=== PATIENT | male | born 1995 | race Caucasian/White ===

== ENCOUNTER 2022-03-07 21:13 | Observation (INO) | payer OTHER ==
[2022-03-07 22:18] LABS: Glucose,Whole Blood 41 mg/dL (70-110)
--- NOTE | 2022-03-07 22:29 | ED ---
General Adult HPI - General Chief complaint: Syncope Stated complaint: Syncope Time Seen by Provider: 03/07/22 21:20 Source: patient, EMS Mode of arrival: EMS Limitations: no limitations - History of Present Illness Initial comments: 26-year-old male who presents to the emergency department as a transfer from [facility]. He went into their facility today because he had a syncopal episode. This occurred when patient's family was around. He denies that he injured himself and states that he was only out for a few seconds. At [facility] an EKG was obtained and the physician felt that the patient was in A. fib with a slow ventricular response. She found that his glucose was low. Patient states that he's had difficulty eating and drinking due to neck abdominal pain. Due to his slow A. fib and syncope he was transferred to our fa cility for cardiology consultation. I did review the patient's chart. Family presents to bedside and states that they are concerned that the patient is taking extra of his Adderall as well as sneaking his mom's Lyrica and Xanax. The patient denies to me that he is overdosing on any of his medications or taking medications that are prescribed to him. He denies depression. States that he doesn't eat because of his chronic abdominal pain. Has never had any workup. He denies any recent illnesses. No fevers. Denies cardiac history. No other alleviating, Perceptin or modifying factors - Related Data Home Medications Medication Instructions Recorded Confirmed Dextroamphetamine/Amphetamine 20 mg PO DAILY PRN 03/07/22 03/07/22 [Adderall Xr 20 mg Capsule] Allergies Allergy/AdvReac Type Severity Reaction Status Date / Time No Known Allergies Allergy Verified 03/07/22 23:25 Review of Systems ROS Statement: Those systems with pertinent positive or pertinent negative responses have been documented in the HPI. ROS Other: All systems not noted in ROS Statement are negative. Past Medical History Past Medical History: Atrial Fibrillation History of Any Multi-Drug Resistant Organisms: None Reported Past Surgical History: No Surgical Hx Reported Smoking Status: Former smoker Past Alcohol Use History: None Reported Past Drug Use History: Marijuana - Past Family History Father Additional Family Medical History / Comment(s): father side has history of [place], DM, and HTN General Exam Limitations: no limitations General appearance: alert, in no apparent distress Head exam: Present: atraumatic, normocephalic, normal inspection Eye exam: Present: normal appearance, PERRL, EOMI. Absent: scleral icterus, conjunctival injection, periorbital swelling ENT exam: Present: normal exam, mucous membranes moist Neck exam: Present: normal inspection. Absent: tenderness, meningismus, lymphadenopathy Respiratory exam: Present: normal lung sounds bilaterally. Absent: respiratory distress, wheezes, rales, rhonchi, stridor Cardiovascular Exam: Present: normal rhythm, bradycardia, normal heart sounds. Absent: systolic murmur, diastolic murmur, rubs, gallop, clicks GI/Abdominal exam: Present: soft, normal bowel sounds. Absent: distended, tenderness, guarding, rebound, rigid Extremities exam: Present: normal inspection, full ROM, normal capillary refill. Absent: tenderness, pedal edema, joint swelling, calf tenderness Back exam: Present: normal inspection Neurological exam: Present: alert, oriented X3, CN II-XII intact Psychiatric exam: Present: normal affect, normal mood Skin exam: Present: warm, dry, intact, normal color. Absent: rash Course Vital Signs 03/07/22 03/08/22 03/08/22 21:17 00:35 00:36 Temperature 97.5 F L Pulse Rate 50 L 45 L Pulse Rate [ 48 L Medical Radiation Dosimetrist ] Respiratory 18 16 Rate Blood Pressure 103/70 97/77 O2 Sat by Pulse 91 L 100 Oximetry EKG Findings - EKG Comments: EKG Findings:: EKG demonstrates sinus bradycardic with rate of 48. VT interval 156. Qrs 88. Qtc 431. No acute st segment elevation or depressions. Medical Decision Making - Medical Decision Making Upon arrival patient was placed into room 1. A thorough history and physical exam was performed. I did review the patient's transfer packet. EKG is revi ewed from [facility] and I do not feel the patient is in A. fib. I did repeat an EKG and the patient is sinus bradycardia. I did repeat a glucose which is found to be 41. Patient is given an amp of dextrose. Patient will be admitted for cardiology consultation. I did order every 2 Accu-Cheks. Patient does have an episode of hypoglycemia once again and therefore is placed on a D5 drip. He is given something to eat by mouth. Cardiology and psychiatry will be consulted. Patient awaiting a bed on the floor in stable condition - Lab Data Result diagrams: 03/08/22 07:01 03/08/22 07:01 Lab Results 03/07/22 Range/Units 22:16 POC Glucose (mg/dL) 41 L (70-110) mg/dL POC Glu Clinical Laboratory Science Professor ID January, Elicia Disposition Clinical Impression: Bradycardia, New onset a-fib, Hypoglycemia Disposition: ADMITTED IP TO THIS [facility] Condition: Good Is patient prescribed a controlled substance at d/c from ED?: No Time of Disposition: 23:33 Decision to Admit Reason: Admit from EC Decision Date: 03/07/22 Decision Time: 23:33
[2022-03-07] MEDS ORDERED: DEXTROSE 50% SYRINGE 50 ML IVP STA (22:39)
[2022-03-07] MEDS ORDERED: NALOXONE 0.4 MG/ML 1 ML VIAL IV PRN (23:33)
[2022-03-07] MEDS ORDERED: SODIUM CHLORIDE 0.9% 1,000 ML IV SCH (23:45)
[2022-03-07 23:52] LABS: Glucose,Whole Blood 97 mg/dL (70-110)
--- NOTE | 2022-03-08 00:22 | XR ---
EXAMINATION TYPE: XR KUB DATE OF EXAM: 03/08/2022 COMPARISON: NONE HISTORY: Constipation TECHNIQUE: 2 views upright FINDINGS: Bowel gas pattern is normal. No sign of intestinal obstruction or pneumoperitoneum. Fecal p attern is normal. No evidence of a mass. Bony structures are intact IMPRESSION: Nonacute abdomen.
[2022-03-08 00:28] LABS: Glucose,Whole Blood 61 mg/dL (70-110)
[2022-03-08] MEDS ORDERED: DEXTROSE 5%-0.9% NACL 1,000 ML IV SCH (00:30)
[2022-03-08 00:46] LABS: Amphetamine Screen,Urine Detected (NotDetected); Barbiturate Screen,Urine Not Detected (NotDetected); Benzodiazepines Screen,Urine Not Detected (NotDetected); Cocaine Screen,Urine Not Detected (NotDetected); Methadone Screen, Urine Not Detected (NotDetected); Opiate Screen,Urine Not Detected (NotDetected); Oxycodone Screen, Urine Not Detected (NotDetected); Phencyclidine Screen,Urine Not Detected (NotDetected); Tricyclic Antidepressant,Urine Not Detected (NotDetected); Urn Cannabinoid Scrn Detected (NotDetected)
[2022-03-08 01:50] LABS: Glucose,Whole Blood 73 mg/dL (70-110)
[2022-03-08 02:55] LABS: Glucose,Whole Blood 82 mg/dL (70-110)
[2022-03-08] MEDS ORDERED: NON FORMULARY DRUG (Dextroamphetamine/Amphetamine [Adderall Xr 20 Mg Capsule] 20 MG Cap.Er PO PRN (03:30)
--- NOTE | 2022-03-08 03:45 | P.HPIM ---
History of Present Illness H&P Date: 03/07/22 Chief Complaint: Syncope 26-year-old male with ADHD Patient was transferred to our facility from [facility] due to slow rate A. fib for further evaluation. He was urgently taken to [facility] for syncopal episode which was witnessed by his family. No reported seizure-like activity. At [facility] he was found to be hypoglycemic with blood sugar in the low 50s he was given half an amp of D50 and some juice his blood sugar improved however upon evaluation in our facility upon arrival his blood sugar was low in the low 40s for which she was given more D50 and juice. This by that he repeatedly became hypoglycemic and was eventually started on a D5 drip. Patient denies any history of hypoglycemia he denies taking any diabetes medications by accident he does admit to taking some natural herbs and products to help him with constipation he doesn't recall the name of the product. He also takes Adderall for ADHD. He denies any drug of abuse however family suspect that he overdoses on his medications and takes some of his mother's lyrica, and other meds at time. Patient also reports significant weight loss unintentional over the past few months however he does admit to not eating well due to constipation and abdominal discomfort. He went on a strict diet for the past few years and lost significant amount of weight intentionally but he has been having difficulty with eating over the past 6 months with unintentional weight loss. He denies any GI bleeding denies any fevers or chills denies any history of seizures denies any history of cardiac disease denies any chest pain or trouble breathing. He denies any limitations in his daily activities. He denies any history of hypoglycemia. Review of Systems Pertinent positives as noted in HPI. All other systems were reviewed and are negative Past Medical History Past Medical History: No Reported History History of Any Multi-Drug Resistant Organisms: None Reported Past Surgical History: No Surgical Hx Reported Past Psychological History: ADD/ADHD Smoking Status: Former smoker Past Alcohol Use History: None Reported Past Drug Use History: Marijuana - Past Family History Father Additional Family Medical History / Comment(s): father side has history of [place], DM, and HTN Medications and Allergies Home Medications Medication Instructions Recorded Confirmed Type Dextroamphetamine/Amphetamine 20 mg PO DAILY PRN 03/07/22 03/07/22 History [Adderall Xr 20 mg Capsule] Allergies Allergy/AdvReac Type Severity Reaction Status Date / Time No Known Allergies Allergy Verified 03/07/22 23:25 Physical Exam Vitals: Vital Signs Temp Pulse Pulse Resp BP BP Pulse Ox 03/08/22 03:00 98.2 F 49 L 18 100/63 100 03/08/22 00:36 45 L 16 97/77 100 03/08/22 00:35 48 L 03/07/22 21:17 97.5 F L 50 L 18 103/70 91 L Intake and Output 03/07/22 03/07/22 03/08/22 14:59 22:59 06:59 Other: Weight 65.771 kg 65.771 kg Constitutional: No acute distress, conversant, pleasant, cachectic Eyes: Anicteric sclerae, moist conjunctiva, Pupils equal round reactive to light ENMT: NC/AT Oropharynx clear, no erythema, or exudates Neck: Supple, FROM, no masses, or JVD No carotid bruits No thyromegaly Lungs: Clear to auscultation Clear to percussion Normal respiratory effort, no accessory muscle use Cardiovascular: Heart regular in rate and rhythm, No murmurs, gallops, or rubs No peripheral edema Abdominal: Soft Nontender, no guarding, rebound or rigidity Abdomen moving with respiration Normoactive bowel sounds No hepatomegaly, No splenomegaly No palpable mass No abdominal wall hernia noted Skin: Loose skin obvious over the patient trunk due to significant weight loss otherwise Normal temperature, tone, texture, turgor No induration No subcutaneous nodules No rash, lesions No ulcers Extremities: No digital cyanosis No clubbing Pedal pulses intact and symmetrical Radial pulses intact and symmetrical No calf tenderness Psychiatric: Alert and oriented to person, place and time Appropriate affect fair judgement Neuro Muscles Strength 5/5 in all 4 extremities Sensation to light touch grossly present throughout Cranial nerves II-XII grossly intact No focal sensory deficits Lymphatics: no palpable cervical or supraclavicular , or inguinal lymph nodes Results Labs: Abnormal Lab Results - Last 24 Hours (Table) 03/07/22 03/08/22 03/08/22 Range/Units 22:16 00:24 00:26 POC Glucose (mg/dL) 41 L 61 L (70-110) mg/dL Ur Amphetamines Screen Detected H (NotDetected) U Marijuana (THC) Screen Detected H (NotDetected) Thrombosis Risk Factor Assmnt - Choose All That Apply Any of the Below Risk Factors Present?: No Other Risk Factors: No Other congenital or acquired thrombophilia - If yes, enter type in comment: No Thrombosis Risk Factor Assessment Level: Very Low Risk Assessment and Plan Assessment: Acute metabolic encephalopathy secondary to hypoglycemia Close monitoring of blood sugar Patient denies taking any diabetes medications or insulin Despite repeated doses of D50 and by mouth juice patient kept dropping his blood sugar Patient initiated on D5 drip Monitor blood sugar every hour Check C-peptide and proinsulin Urine drug screen History of ADHD Adderall when necessary Questionable finding of a regular rhythm with controlled rate Continue with cardiac monitoring Cardiology evaluation DVT prophylaxis mechanical CODE STATUS full code
[2022-03-08 05:33] LABS: Glucose,Whole Blood 73 mg/dL (70-110)
[2022-03-08 06:59] LABS: Glucose,Whole Blood 77 mg/dL (70-110)
[2022-03-08 07:44] VITALS: BP 113/65; PULSE 52; RESP 16; TEMP 98.1
[2022-03-08 07:51] LABS: Basophils % (A) 1 %; Eosinophils # (A) 0.2 k/uL (0-0.7); Eosinophils % (A) 5 %; HCT 41.9 % (39.0-53.0); HGB 13.9 gm/dL (13.0-17.5); Lymphocytes # (A) 1.3 k/uL (1.0-4.8); Lymphocytes % (A) 29 %; MCH 32.1 pg (25.0-35.0); MCHC 33.2 g/dL (31.0-37.0); MCV 96.9 fL (80.0-100.0); Mean Platelet Volume 7.8; Monocytes # (A) 0.3 k/uL (0-1.0); Monocytes % (A) 6 %; Neutrophils # (A) 2.6 k/uL (1.3-7.7); Neutrophils % (A) 58 %; Platelet Count 160 k/uL (150-450); RBC 4.33 m/uL (4.30-5.90); RDW 12.2 % (11.5-15.5); WBC 4.5 k/uL (3.8-10.6)
[2022-03-08 08:11] LABS: African American GFR (CKD) >90 (>60 ml/min/1.73 sqM); Anion Gap 4 mmol/L; Blood Urea Nitrogen 3 mg/dL (9-20); Calcium 8.7 mg/dL (8.4-10.2); Carbon Dioxide 31 mmol/L (22-30); Chloride 105 mmol/L (98-107); Glucose 66 mg/dL (74-99); Non-African American GFR(CKD) >90 (>60 ml/min/1.73 sqM); Potassium 4.8 mmol/L (3.5-5.1); Sodium 140 mmol/L (137-145)
[2022-03-08 09:02] LABS: Glucose,Whole Blood 73 mg/dL (70-110)
--- NOTE | 2022-03-08 11:01 | P.DS ---
Providers Date of admission: 03/07/22 23:33 Expected date of discharge: 03/08/22 Attending physician: Jesu Rm MD Consults: 03/07/22 23:33 Consult Physician Urgent Consulting Provider: Reginald Joe Consult Reason/Comments: possible overdose Do you want consulting provider notified?: Yes 03/07/22 23:57 Consult Physician Urgent Consulting Provider: [facility] Consult Reason/Comments: possible afib Do you want consulting provider notified?: Yes Primary care physician: Reginald Wright [facility] Course: Acute metabolic encephalopathy secondary to hypoglycemia History of ADHD 26-year-old male with ADHD was transferred to our facility from [facility] due to slow rate A. fib for further evaluation. At [facility] he was found to be hypoglycemic with blood sugar in the low 50s he was given half an amp of D50 and some juice his blood sugar improved however upon evaluation in our facility upon arrival his blood sugar was low in the low 40s for which she was given more D50 and juice. Pt was started on D5 gtt, and after 24 hour observation, his sugars stabilized. Pt reported poor PO intake over the past several days which is the likely etiology of hypoglycemia. No A Fib noted on telemetry. Discharged home with PCP f/u. Gen: awake, alert HEENT: normocephalic, atraumatic, good hearing acuity, moist mucous membranes Resp: good air exchange, breathing comfortably with no accessory muscle use CVS: good distal perfusion x 4, GI: soft, NTTP, ND : no SPT, no CVAT, peralta catheter not present MSK: no pitting edema, no clubbing Neuro: non-focal, moving all extremities Psych: cooperative, euthymic mood Patient Condition at Discharge: Good Plan - Discharge Summary Discharge Rx Participant: No New Discharge Prescriptions: Continue Dextroamphetamine/Amphetamine [Adderall Xr 20 mg Capsule] 20 mg PO DAILY PRN PRN Reason: adhd Discharge Medication List Dextroamphetamine/Amphetamine [Adderall Xr 20 mg Capsule] 20 mg PO DAILY PRN 03/07/22 [History] Follow up Appointment(s)/Referral(s): Reginald Wright MD [Primary Care Provider] - 1-2 days Epifanio Borden MD [STAFF PHYSICIAN] - 1 Week Patient Instructions/Handouts: Non-diabetic Hypoglycemia (DC), Bradycardia (DC) Discharge Disposition: HOME SELF-CARE
[2022-03-08 11:36] LABS: Glucose,Whole Blood 58 mg/dL (70-110)
[2022-03-08 11:55] LABS: Glucose,Whole Blood 75 mg/dL (70-110)
[2022-03-08 11:56] VITALS: BMI 18.6
--- NOTE | 2022-03-08 13:28 | CA ---
Transthoracic Echo Report Name: Genaro Fang Age: 26 Gender: M : 1995 Exam Date: 03/08/2022 07:55 Exam Location: [place] [facility] Ht (in): 74 Wt (lb): 145 Ordering Physician: Daniela Jameson DO Attending/Referring Phys: [id number], Trino Moveman Lisa Saucedo, REGI Procedure CPT: Indications: syncope, possible new onset afib Cardiac Hx: Technical Quality: Fair Contrast 1: Total Dose (mL): Contrast 2: Total Dose (mL): MEASUREMENTS (Male / Female) Normal Values 2D ECHO LV Diastolic Diameter PLAX 4.6 cm 4.2 - 5.9 / 3.9 - 5.3 cm LV Systolic Diameter PLAX 2.4 cm IVS Diastolic Thickness 1.0 cm 0.6 - 1.0 / 0.6 - 0.9 cm LVPW Diastolic Thickness 0.9 cm 0.6 - 1.0 / 0.6 - 0.9 cm LV Relative Wall Thickness 0.4 LA Volume 35.9 cm??? 18 - 58 / 22 - 52 cm??? M-MODE Aortic Root Diameter MM 3.2 cm LA Systolic Diameter MM 3.3 cm LA Ao Ratio MM 1.0 AV Cusp Separation MM 2.4 cm DOPPLER AV Peak Velocity 118.0 cm/s AV Peak Gradient 5.6 mmHg LVOT Peak Velocity 97.4 cm/s LVOT Peak Gradient 3.8 mmHg MV Area PHT 2.1 cm??? Mitral E Point Velocity 84.8 cm/s Mitral A Point Velocity 35.2 cm/s Mitral E to A Ratio 2.4 MV Deceleration Time 362.6 ms MV E' Velocity 11.6 cm/s Mitral E to MV E' Ratio 7.3 FINDINGS Left Ventricle Normal left ventricular size, wall thickness, systolic function with no obvious regional wall motion abnormalities. Normal left ventricular diastolic filling pattern for age. The ejection fraction is visually estimated at 55-60 %. Right Ventricle The right ventricle is normal in size and function. Right Atrium The right atrium is normal in size. Left Atrium The left atrium is normal in size. Mitral Valve Structurally normal mitral valve without significant stenosis or prolapse. There is no mitral regurgitation. Aortic Valve Structurally normal aortic valve without significant sclerosis or stenosis. There is no aortic regurgitation. Tricuspid Valve Structurally normal tricuspid valve without significant stenosis. Pulmonary artery systolic pressure is normal. Pulmonic Valve Structurally normal pulmonic valve without significant stenosis. There is no pulmonic regurgitation. Pericardium Minimal pericardial effusion (normal variant). Aorta Normal aortic root dimension. CONCLUSIONS Normal LV systolic function Previewed by: Dr. Epifanio Borden MD (Electronically Signed) Final Date: 08 March 2022 13:27
--- NOTE | 2022-03-08 17:05 | CONS ---
CONSULTATION CHIEF COMPLAINT: Syncope. This is a 26-year-old gentleman with no significant past medical history who has attention deficit hyperactivity disorder and is currently on Adderall. He presented to hospital having had an episode of syncope. We have been consulted for the same. The patient denies chest pain, difficulty in breathing, palpitations. The patient had a slow heart rate on his initial presentation to [facility]. He did not have any seizure disorder. He apparently was hypoglycemic. He lost quite a bit of weight recently and his oral intake is poor, which is what the syncope had been attributed to. From cardiac standpoint, so far he has not had any high-grade AV block, did not have documented cardiac arrhythmias; in fact, at the time of my evaluation he is already ready to go home. PAST MEDICAL HISTORY: Negative for hypertension, diabetes, dyslipidemia. Medications are significant for Adderall. ALLERGIES: NO KNOWN DRUG ALLERGIES. FAMILY HISTORY: Negative for premature coronary artery disease. SOCIAL HISTORY: Negative for current smoking, EtOH abuse or drug abuse. REVIEW OF SYSTEMS: HEENT is unremarkable. CARDIAC: As described above. RESPIRATORY: Negative. GI: Negative. GENITOURINARY: Negative. ALLERGY/IMMUNOLOGY: Negative. SKIN: Negative. MUSCULOSKELETAL: Significant for arthritis. PSYCHOSOCIAL: Negative. DERMATOLOGY: Negative. CONSTITUTIONAL: Negative. ONCOLOGICAL: Negative. FINISHER TAILOR APPRENTICE: Negative. Rest of the system review is not relevant. PHYSICAL EXAMINATION: Comfortable at rest. Vital signs are stable. There is no jugular venous distention. Carotid upstroke is normal. There is no bruit. Chest exam reveals good air entry bilaterally. Heart exam reveals first and second heart sounds. No gallop. No murmur. Abdomen is soft. Examination of extremities did not reveal any edema. Peripheral pulses are felt. The patient does not have any orthostatic changes. Syncope workup is negative; could be related to significant weight loss and poor oral intake. I advised him not to miss his diet. I will review the echocardiogram and I will arrange outpatient followup through my office to continue his workup. MMODL / IJN: [id number] /
== END 2022-03-08 12:47 | disposition home or self-care (01) ==
LOC: EC 21:13 → 3SCARD 23:33
PROVIDERS: ADMIT Internal Medicine; ATTEND Internal Medicine
DX: G93.41 Metabolic encephalopathy (principal); E16.2 Hypoglycemia, unspecified; F90.9 Attention-deficit hyperactivity disorder, unspecified type; R55 Syncope and collapse; I48.91 Unspecified atrial fibrillation; K59.00 Constipation, unspecified; R00.1 Bradycardia, unspecified; R10.9 Unspecified abdominal pain; G89.29 Other chronic pain; R63.4 Abnormal weight loss; Z87.891 Personal history of nicotine dependence; Z83.3 Family history of diabetes mellitus; Z82.49 Family history of ischemic heart disease and other diseases of the circulatory system; Z71.3 Dietary counseling and surveillance
CPT/HCPCS: 96374; 99285; 36415; 93005; 93306; 84206; 80048; 84443; 85025; 84681; 80306; 74018; G0378